=== PATIENT | female | born 1975 | race Caucasian/White ===

== ENCOUNTER 2017-08-22 11:43 | Inpatient (IN) ==
[2017-08-22] MEDS ORDERED: Sod Chloride 0.9% Inj 1,000 ML IV.SIG ONE (17:37)
--- NOTE | 2017-08-22 17:41 | P.HPIM ---
History of Present Illness Primary Care Physician: UNKNOWN Chief Complaint: Palpitations History of Present Illness: This patient is a 42-year-old female with minimal past medical history who comes in with intermittent palpitations for several weeks. She saw her primary care doctor who referred her to outpatient cardiology. In the meantime she had more symptoms and fact started having left arm pain and pressure. She was diaphoretic. She came to the emergency room. She denies geraldo chest pains that she has chest tightness and dyspnea during the symptoms. She notes that is not aggravated by movement and there is no associated fever or chills. She has never had this before. She is come to the emergency room in [place] been transferred to our facility for atypical chest discomfort. Cardiac troponins and EKG are unremarkable at this time - Diagnosis (1) Atypical chest pain (2) Heart palpitations Review of Systems All other systems reviewed negative except as stated in HPI Cardiovascular: Reports rapid, pounding, or irregular heartbeat PMFSH - History History Provided By: Patient - Medical History Medical History: Medical History (Last Reviewed 08/22/17 @ 17:40 by Magalys Abbasi MD) Patient denies medical problems - Surgical History Surgical History: Surgical History (Last Reviewed 08/22/17 @ 17:40 by Magalys Abbasi MD) History of bilateral tubal ligation No history of previous surgery - Family History Family History: Family History (Last Updated 08/22/17 @ 17:40 by Magalys Ababsi MD) Other CAD (coronary artery disease) - Tobacco History Second Hand Smoke Exposure: No Smoking Status: Never smoker - Alcohol History How Often Do You Have a Drink Containing Alcohol: Never - Substance Use History Substance History: No History of Abuse Medications and Allergies Active Medications: Active Medications Acetaminophen (Tylenol) 500 mg PO Q4H PRN PRN Reason: HEADACHE Aspirin (Aspirin) 325 mg PO DAILY CHAVEZ Famotidine (Pepcid) 20 mg PO BID CHAVEZ Nitroglycerin (Nitrostat Sl) 0.4 mg SL Q5M PRN PRN Reason: CHEST PAIN Sodium Chloride (Ns Flush) 2 ml IV.FLUSH BID CHAVEZ Sodium Chloride (Ns Flush) 2 ml IV.FLUSH PRN PRN PRN Reason: FLUSH AFTER USING IV ACCESS Allergies Allergy/AdvReac Type Severity Reaction Status Date / Time No Known Allergies Allergy Unverified 08/22/17 11:49 Home Medications Medication Instructions Recorded Confirmed Type No Known Home Medications 08/22/17 08/22/17 History Exam Vital signs: Intake & Output 08/21/17 08/22/17 08/22/17 18:59 06:59 18:59 Weight 77.9 kg Other: # Voids 1 Weight On Admission 77.9 kg Narrative: GENERAL: Patient calm resting and without complaints SKIN: Warm and dry. No rashes or ecchymotic injuries EYES: Pupils equal and round. No scleral icterus. No injection or drainage. ENT: External ear exam normal. No acute nasal bleeding or discharge. Mucous membranes pink and moist. CARDIOVASCULAR: Regular rate and rhythm. No murmurs gallops or rubs appreciated RESPIRATORY: Good air flow and effort without accessory muscle use. Clear to auscultation. Breath sounds equal bilaterally. GASTROINTESTINAL: Abdomen soft, non-tender, nondistended. Hepatic and splenic margins not palpable. MUSCULOSKELETAL: Extremities without clubbing, cyanosis, or edema. No obvious deformities. NEUROLOGICAL: Awake and alert. No obvious cranial nerve deficits. Motor grossly within normal limits. Five out of 5 muscle strength in the arms and legs. Normal speech. Results - Labs Labs: Labs reviewed from the ER show normal CBC and normal CMP was normal coagulation profile Caprini VTE Risk Assessment Caprini VTE Risk Assessment: No/Low Risk (score <= 1) Caprini Risk Assessment Model: Point Value = 1 Point Value = 2 Point Value = 3 Point Value = 5 Age 41-60 Minor surgery BMI > 25 kg/m2 Swollen legs Varicose veins or History of unexplained or recurrent spontaneous Oral contraceptives or hormone replacement Sepsis (< 1 month) Serious lung disease, including pneumonia (< 1 month) Abnormal pulmonary function Acute myocardial infarction Congestive heart failure (< 1 month) History of inflammatory bowel disease Medical patient at bed rest Age 61-74 Arthroscopic surgery Major open surgery (> 45 min) Laparoscopic surgery (> 45 min) Malignancy Confined to bed (> 72 hours) Immobilizing plaster cast Central venous access Age >= 75 History of VTE Family history of VTE Factor V Leiden Prothrombin [id number] Lupus anticoagulant Anticardiolipin antibodies Elevated serum homocysteine Heparin-induced thrombocytopenia Other congenital or acquired thrombophilia Stroke (< 1 month) Elective arthroplasty Hip, pelvis, or leg fracture Acute spinal cord injury (< 1 month) Prophylaxis Regimen: Total Risk Factor Score Risk Level Prophylaxis Regimen 0-1 Low Early ambulation 2 Moderate Order ONE of the following: *Sequential Compression Device (SCD) *Heparin 5000 units SQ BID 3-4 Higher Order ONE of the following medications: *Heparin 5000 units SQ TID *Enoxaparin/Lovenox 40 mg SQ daily (WT < 150 kg, CrCl > 30 mL/min) *Enoxaparin/Lovenox 30 mg SQ daily (WT < 150 kg, CrCl > 10-29 mL/min) *Enoxaparin/Lovenox 30 mg SQ BID (WT < 150 kg, CrCl > 30 mL/min) AND/OR *Sequential Compression Device (SCD) 5 or more Highest Order ONE of the following medications: *Heparin 5000 units SQ TID (Preferred with Epidurals) *Enoxaparin/Lovenox 40 mg SQ daily (WT < 150 kg, CrCl > 30 mL/min) *Enoxaparin/Lovenox 30 mg SQ daily (WT < 150 kg, CrCl > 10-29 mL/min) *Enoxaparin/Lovenox 30 mg SQ BID (WT < 150 kg, CrCl > 30 mL/min) AND *Sequential Compression Device (SCD) Assessment and Plan - Assessment (1) Atypical chest pain Code(s): R07.89 - Other chest pain Status: Acute Plan: Etiology unclear Patient has a sister with coronary disease but has minimal risk factors herself. Continue with telemetry plans, cardiac enzymes Patient may warrant a further stress testing (2) Heart palpitations Code(s): R00.2 - Palpitations Status: Acute Plan: Follow-up TSH Patient appears dehydrated on exam We will continue IV hydration and follow on telemetry H&P: Quality - VTE Deep Vein Thrombosis/Pulmonary Embolism Present on Admission: No
[2017-08-22] MEDS: Sod Chloride 0.9% Inj 1,000 ML IV.CONT SCH (18:01)
[2017-08-22 20:29] LABS: Creatine Kinase 78 U/L (26-192)
[2017-08-22 20:35] LABS: Thyroid Stimulating Hormone 0.997 uIU/mL (0.358-3.740)
[2017-08-22] MEDS: Famotidine 20 MG Tablet PO SCH (21:09)
[2017-08-22 22:53] LABS: Creatine Kinase 67 U/L (26-192)
[2017-08-23] MEDS: Sod Chloride 0.9% Inj 1,000 ML IV.CONT SCH ×2 (04:02→19:45)
[2017-08-23] MEDS: Famotidine 20 MG Tablet PO SCH ×2 (09:00→20:59)
[2017-08-23] MEDS: Aspirin 325 MG Tablet PO SCH (09:00)
--- NOTE | 2017-08-23 11:07 | P.PNIM ---
Subjective Interval history: Evaluated for atypical anginal equivalent presentation with palpitations. No events on telemetry Awaiting stress test Physical Exam Vital signs: Vital Signs 08/22/17 19:45 08/22/17 20:00 08/23/17 00:00 Temperature 97.3 F L 97.9 F Pulse Rate 65 66 Respiratory Rate 20 20 Blood Pressure 107/78 114/71 Pulse Oximetry 99 99 97 08/23/17 04:00 08/23/17 08:00 08/23/17 08:14 Temperature 97.2 F L 98.1 F Pulse Rate 72 71 Respiratory Rate 18 16 Blood Pressure 105/79 106/69 Pulse Oximetry 97 96 97 08/23/17 09:31 Temperature Pulse Rate 65 Respiratory Rate Blood Pressure Pulse Oximetry Intake & Output 08/22/17 08/23/17 08/23/17 18:59 06:59 18:59 Intake Total 2240 / 2240 Balance 2240 / 2240 Weight 77.9 kg 79.9 kg Intake: IV 2000 / 1999 NS Inj 1,000 ML @ 100 mls/hr IV 1000 / 1000 .CONT .Q10H CHAVEZ Rx#:[id number] NS Inj 1,000 ML @ Wide Open IV. 1000 / 1000 SIG BOLUS ONE Rx#:[id number] Oral 240 / 240 Other: # Voids 1 2 Weight On Admission 77.9 kg - Constitutional no acute distress - Routine Cardiovascular Exam Present: RRR, S1, S2 - Routine Extremities Exam Present: full ROM Results - Labs Laboratory Results - last 24 hr 08/22/17 08/22/17 08/22/17 19:40 19:40 22:25 Total Creatine Kinase 78 67 Troponin I Less than 0.02 L Less than 0.02 L TSH 0.997 Cancelled Assessment and Plan - Assessment (1) Atypical chest pain Code(s): R07.89 - Other chest pain Status: Acute Plan: Etiology unclear Patient has a sister with coronary disease but has minimal risk factors herself. Continue with telemetry plans, cardiac enzymes pending stress testing (2) Heart palpitations Code(s): R00.2 - Palpitations Status: Acute Plan: nl TSH Patient appears dehydrated on exam stable
[2017-08-23] MEDS ORDERED: Regadenoson Inj 0.4 MG/5 ML Syringe IV.PUSH ONE (13:09)
--- NOTE | 2017-08-23 14:30 | NM ---
EXAM DATE: 08/23/2017 2:15 PM EDT AGE/SEX: 42 years / Female INDICATIONS:Angina. . Left sided chest pain with palpitations. CLINICAL DATA: This is the patient's initial encounter. Patient reports that signs and symptoms have been present for 1 day and indicates a pain score of 3/10. MEDICAL/SURGICAL HISTORY: None. Hysterectomy. COMPARISON: No prior exams available for comparison. DOSE: 8.5 mCi Tc 99m Myoview at rest 25.4 mCi [id number] at stress 0.4 mg Lexiscan STRESS SYMPTOMS: Dyspnea and heart racing. EJECTION FRACTION: 56 % TECHNIQUE: The patient underwent pharmacologic stress with infusion of prescribed dose. Continuous ECG tracing was monitored during stress. Gated SPECT imaging was performed after stress and conventi onal SPECT imaging was performed at rest. The examination was performed on a SPECT/CT scanner, both attenuation and non-corrected datasets were reviewed. FINDINGS: Distribution: The maximum perfused segment at stress is in the anterior wall. Perfusion Study: There appears to be diminished perfusion involving the septal wall on the stress i mages. There appears to be redistribution along the septal wall on the rest images. This suggests isc hemic myocardial changes involving the septal wall. The rest of the ventricle demonstrates good perfu marilee. Gated Study: There are intact wall motion and wall thickening without hypokinetic or dyskinetic segm ents. The ejection fraction is calculated at 56%. RISK CATEGORY: Intermediate to high CONCLUSION: 1. There is diminished perfusion along the septal wall on the stress images. There is redistribution of tracer activity throughout the septal wall on the rest images suggestive of ischemic myocardial c hanges of the septal wall. 2. No other significant perfusion defects are demonstrated. Electronically signed by: Keaton Leavitt MD 08/23/2017 2:29 PM EDT
--- NOTE | 2017-08-23 15:04 | ECG ---
Date Performed: 08/22/2017 Time Performed: 17:03:59 PTAGE: 42 years EKG: SINUS BRADYCARDIA WITH SINUS ARRHYTHMIA POSSIBLE LEFT ATRIAL ENLARGEMENT BORDERLINE ECG NO PREVIOUS TRACING DOCTOR: Christopher Powell Interpretating Date/Time 08/23/2017 15:02:50
[2017-08-24 05:38] LABS: Chol/HDL Ratio 4.52 Ratio
[2017-08-24] MEDS: Aspirin 325 MG Tablet PO SCH (08:21)
[2017-08-24] MEDS: Famotidine 20 MG Tablet PO SCH ×2 (08:22→22:15)
[2017-08-24] MEDS: Sod Chloride 0.9% Inj 1,000 ML IV.CONT SCH ×2 (08:23→11:48)
--- NOTE | 2017-08-24 11:51 | P.PNIM ---
Subjective Interval history: Patient reports she is feeling okay today. Denies chest pressure or shortness of breath. Physical Exam Vital signs: Vital Signs 08/23/17 12:00 08/23/17 16:00 08/23/17 20:30 Temperature 98.0 F 98.7 F 98.1 F Pulse Rate 55 L 73 Respiratory Rate 16 17 60 H Blood Pressure 113/74 121/90 133/87 Pulse Oximetry 98 99 98 08/23/17 21:00 08/24/17 00:04 08/24/17 01:00 Temperature 98 F Pulse Rate 60 73 65 Respiratory Rate 20 Blood Pressure 107/56 L Pulse Oximetry 100 08/24/17 03:55 08/24/17 05:00 08/24/17 08:00 Temperature 98.2 F 98.1 F Pulse Rate 64 65 63 Respiratory Rate 18 16 Blood Pressure 108/65 114/74 Pulse Oximetry 97 100 08/24/17 09:00 08/24/17 10:00 08/24/17 11:00 Temperature Pulse Rate 59 L 57 L 55 L Respiratory Rate Blood Pressure Pulse Oximetry Intake & Output 08/23/17 08/24/17 08/24/17 18:59 06:59 18:59 Intake Total 1360 / 1360 240 / 240 Balance 1360 / 1360 240 / 240 Weight 78.5 kg Intake: IV 1000 / 1000 NS Inj 1,000 ML @ 100 mls/hr IV 1000 / 1000 .CONT .Q10H [facility] Rx#:[id number] Oral 360 / 360 240 / 240 Other: # Voids 5 2 # Bowel Movements 0 Narrative: GENERAL: This is a well-nourished, well-developed patient, in no apparent distress. CARDIOVASCULAR: Normal rate and regular rhythm without murmurs, gallops, or rubs. RESPIRATORY: Good respiratory efforts. Breath sounds equal and clear to auscultation bilaterally. GASTROINTESTINAL: Abdomen soft, non-tender, non-distended. Normal active bowel sounds MUSCULOSKELETAL: Extremities without cyanosis, or edema. NEURO: Alert & Oriented x4 to person, place, time, situation. Moves all ext x4 PSYCH: Appropriate mood and affect. Results - Labs Laboratory Results - last 24 hr 08/24/17 04:33 Triglycerides 80 Cholesterol 163 LDL Cholesterol, Calc 111 H HDL Cholesterol 36.0 L Cholesterol/HDL Ratio 4.52 - Imaging Impressions Myocardial Perfusion Scan Nuc Med 08/23/17 00:00 CONCLUSION: 1. There is diminished perfusion along the septal wall on the stress images. There is redistribution of tracer activity throughout the septal wall on the rest images suggestive of ischemic myocardial changes of the septal wall. 2. No other significant perfusion defects are demonstrated. Assessment and Plan - Assessment (1) Atypical chest pain Code(s): R07.89 - Other chest pain Status: Acute (2) Heart palpitations Code(s): R00.2 - Palpitations Status: Acute (3) Abnormal nuclear stress test Code(s): R94.39 - Abnormal result of other cardiovascular function study Status: Acute - Plan 42-year-old female who presented with chest pain. Patient had an abnormal nuclear stress test. Atypical chest pain/abnormal nuclear stress test: -Cardiology consulted. NPO for likely cath today - Continue Aspirin, nitro as needed. Chest pain resolved. GI prophylaxis: Stool softener PRN constipation. DVT PPx: Patient is ambulatory.
[2017-08-24] MEDS ORDERED: fentaNYL Citrate Inj 100 MCG/2 ML Ampul ONE (12:05)
[2017-08-24] MEDS ORDERED: Heparin/NS PF Inj 1,000 ML ONE (12:05)
--- NOTE | 2017-08-24 12:05 | TR ---
Date Performed: 08/23/2017 Time Performed: 13:16:18 DOCTOR: Xuan Martin DRUG LIST: CLINICAL HISTORY: CHEST PAIN REASON FOR TEST: Chest pain REASON FOR ENDING: OBSERVATION: CONCLUSION: Lexiscan stress test was performed under standard four minute protocol. Radionuclid e was injected one minute prior to ending the test. No electrocardiographic abormalities were present to suggest ischemia. Nuclear imaging and interpretation are pending. COMMENTS: no ischemia
[2017-08-24] MEDS ORDERED: Heparin 10,000 UNITS/10 ML Vial (for IV use) ONE (12:06)
--- NOTE | 2017-08-24 12:47 | CATHPROC ---
[facility] HIS Report Study Information Study Number Admission Scheduled Start Study Start [id number] Aug 23 2017 2:41PM 08/24/2017 Aug 24 2017 12:03PM [facility] [facility] Cardiac Catheterization Admit Source Facility Department Emergency department [facility] - [facility] Physician and Clinical Staff Initial Girma Hinkle Endband Cutter Hand Carole Benavides,Ag Cummings RN Recorder Umu Hardy,RT(R) Scrub Candi Joyner,KILN CAR UNLOADER TECH2 Procedures Performed Procedure Location (Site) Vessel Name Coronary Angiograms LCA Left Coronary Coronary Angiograms RCA Right Coronary L Heart Cath Equipment Time Police Commissioner Description Size Mfg Part Number Used/Scraped TRANSDUCER, TRUWAVE [id number] 12:06 FREGOSO FLORES * Used W/STOCKCOCK *[id number] [id number] *[id number] [id number] *[id number] 12:06 [employer] BLANKET,WARM AIR CCL * Used *[id number] 12:06 [employer] PACK, CCL CUSTOM * Used *[id number] 12:06 [employer] SUPPORT, ARTERIAL ADULT 74997 *[id number] Used BAND, RADIAL COMPRESSION TR [id number] 12:[address] 24CM Used SHORT 24 *[id number] 12:[address] WIRE, EXCHANGE 260CM 3MMJ 260CM Used *[id number] 12:06 NAMIC MANIFOLD, 4 PORT * Used *[id number] 12:06 [employer] OMNIPAQUE, 350 MG, 150ML 150ML [id number] Used SHEATH, FR6 TRANSRADIAL [id number] 12:06 [employer] FR 6 Used SLENDER 10CM *[id number] History: Current Medications Medication Dosage/Unit Route Frequency Last Date/Time Taken ASA LIPITOR History: Allergies Allergy Reaction No Known Allergies History: Risk Factors Family History of Hypertension Dyslipidemia Previous [place] Previous Heart Failure Premature CAD No No No No No Prior Valve Prior PCI Prior CABG Surgery No No No Cerebrovascular Peripheral Artery Chronic Lung On Dialysis Diabetes Disease Disease Disease No No No No No History: Stress Tests Stress or Imaging Studies Performed Yes Standard Exercise Stress Test No Stress Echo No Stress Test SPECT Stress Test SPECT Result Yes Positive Stress Test CMR No Cardiac CTA Coronary Calcium Score No No History: Other Current Smoker No Labs Hgb (g/dl) Hct (%) WBC (l/cumm) Platelets (thousands) 11.60-17.00 35.00-51.00 4.00-11.00 150.00-450.00 12.2 34.9 11.1 387 Glucose (mg/dl) BUN (mg/dl) Creatinine (mg/dl) BUN:Creatinine (1:x) 74.00-106.00 7.00-18.00 0.50-1.30 10.00-20.00 92 14 0.6 23.3 Na (meq/l) K (meq/l) 136.00-145.00 3.50-5.10 140 4 INR (PTT:PT) 0.90-1.10 1 Troponin I (ng/ml) CPK (u/l) CPK-MB (ng/ML) 0.02-0.05 26.00-308.00 0.50-3.60 0.02 67 Not Drawn Medication Medication Total Dose (Bolus/Oral) Medication Total Dosage/Unit 1% XYLOCAINE 5 mL FENTANYL 25 mcg RADIAL COCKTAIL 5 mL (Bolus) VERSED 0.5 mg Medications (Bolus/Oral) Medication Time Given Dosage/Unit Administered By Reason VERSED 08/24/2017 12:25:46 PM 0.5 mg Carole Benavides 0.5 mg VERSED given in lab by Carole Benavides RN in Left Antecubital via Peripheral IV. Ordered by Girma Gonzalez FENTANYL 08/24/2017 12:26:06 PM 25 mcg Carole Benavides 25 mcg FENTANYL given in lab by Carole Benavides RN in Left Antecubital via Peripheral IV. Ordered by Girma García 1% XYLOCAINE 08/24/2017 12:26:21 PM 5 mL Girma García 5 mL 1% XYLOCAINE given in lab by Girma García in Right Radial via Subcutaneous. Ntg 200mcg Verapamil 2.5mg Heparin RADIAL COCKTAIL 08/24/2017 12:28:05 PM 5 mL (Bolus) Girma García 3000U 5 mL (Bolus) RADIAL COCKTAIL given in lab by Girma García in Right Radial via Radial. Using [S olution Name]. Reason: Ntg 200mcg Verapamil 2.5mg Heparin 3000U. Medication (Drip) Medication Time Given Dosage/Unit Concentration/Unit Diluent (ml) Solution IV Solutions 08/24/2017 12:03:13 PM 50 mL (IV) NaCl .9 IV Solutions given in lab by Carole Benavides RN in Left Antecubital via Peripheral IV. Pump/Drip Javan w using NaCl .9. Initial Case Assessment Cardiovascular Chest Pain 0 Edema Present Skin color Skin None Normal Warm Dry Circulatory - Right Pulses Dorsalis Pedis Femoral Radial 2 2 2 Scale (0,1,2,3,4,d) Circulatory - Left Pulses Dorsalis Pedis Femoral Radial 2 2 Scale (0,1,2,3,4,d) Neurological State Oriented to time-place- Alert Moves all extremities person Chronological Log Time Study Chronological Log 11:59:00 Patient arrived via Bed. 12:02:58 Patient Name, D.O.B, / Armband Verified By R.N. 12:02:59 Consent signed by the physician and the patient and verified by the [employer] staff. 12:03:00 Pre-op and post- op instructions given; patient acknowledges understanding of instructions . 12:03:01 Verbal Stimulation=2 Physical Stimulation=2 Airway=2 Respiration=2 TOTAL=8. (0=absent, 1=l imited, 2=present) 12:03:03 Allens test performed on the right radial and ulnar artery. 12:03:05 Patient has been NPO for More than 6Hrs. 12:03:05 Skin Breakdown- none per pt 12:03:06 Patient Warmer Placed on the Table. 12:03:07 [place] Prominences Protected 12:03:08 A # 22 IV was noted in the Antecubital (left). Grade = 0 12:03:13 IV Solutions given in lab by Carole Benavides, GHANSHYAM in Left Antecubital via Peripheral IV. Pu mp/Drip Flow using NaCl .9. 12:03:32 History and physical on the chart or being dictated. Assessment: Initial Case, Chest Pain=0, Edema=None, Color=Normal, Skin = Warm, Dry Right Pulses: Raymon Ped=2, Femoral=2, Radial=2 12:03:32 Left Pulses: Raymon Ped=2, Femoral=2 Neurological: State=Alert, Ox3, HOUSER Vitals capture started with the following parameters, Patient=Adult, Interval=5 min, Initial P ngynaxs=087 mmHg, 12:03:35 Deflation Rate=5 mmHg, Cuff placed on Right Arm 12:04:15 HR=65 bpm, RFGD=639/65 mmhg, EyO3=351.0 %, Resp=9 B/min, Pain=0, Jorje=10, Reyes=2 12:05:58 Reference ECG taken 12:09:10 HR=60 bpm, CQMV=608/84 mmhg, SxN7=832.0 %, Pain=0, Jorje=10, Reyes=2 12:11:15 MD paged 12:12:09 Right Radial and groin(s) prepped with 2% chlorhexidine, and draped after a 3 min. waiting time. 12:13:47 Pressure channel 1 zeroed. 12:14:07 HR=70 bpm, UZSG=303/90 mmhg, FjF2=858 %, Resp=12 B/min, Pain=0, Jorje=10, Reyes=2 12:19:12 HR=59 bpm, IGRL=997/74 mmhg, SpO2=99.0 %, Pain=0, Jorej=10, Reyes=2 12:21:32 MD arrived. 12:24:09 HR=60 bpm, BZOB=879/78 mmhg, IgF3=380.0 %, Resp=12 B/min, Pain=0, Jorje=10, Reyes=2 Time Out. Correct patient, correct procedure, correct physician, labs, allergies, and equipment verified with slabber 12:25:21 team present. Fire risk assesment completed (see hard stop sheet for coding). Time Out Conc urred by MD and individual staff in procedure. 0.5 mg VERSED given in lab by Carole Benavides, GHANSHYAM in Left Antecubital via Peripheral IV. Ordere d by Girma García 12:25:46 G. 25 mcg FENTANYL given in lab by Carole Benavides, GHANSHYAM in Left Antecubital via Peripheral IV. Orde red by Ricky 12:26:06 Girma Talbot 12:26:16 Case Start 12::21 5 mL 1% XYLOCAINE given in lab by Girma García in Right Radial via Subcutaneous. 12:27:09 Access site was Right Radial Artery. A SHEATH, FR6 TRANSRADIAL SLENDER 10CM FR 6 was advanced into the Radial (right) using the Perc utaneous 12:27:52 technique. 5 mL (Bolus) RADIAL COCKTAIL given in lab by Girma García in Right Radial via Radial. Us ing [Solution Name]. 12:28:05 Reason: Ntg 200mcg Verapamil 2.5mg Heparin 3000U. A JR 4.0 INFINITI CATHETER FR 5 was advanced over a wire. OMNIPAQUE, 350 MG, 150ML 150ML was us ed for 12::34 injections. 12:29:10 HR=72 bpm, MVZJ=452/82 mmhg, SpO2=97 %, Resp=10 B/min, Pain=0, Jorje=10, Reyes=2 Recorded Pressure: LV, GM=693, Condition=Condition 1 12:29:39 (Left Ventricle) LV 132/4/17 Recorded Pressure: LV, Ao, HR=74, Condition=Condition 1 12:30:01 (Left Ventricle) LV 129/-3/14, (Aorta) Ao 107/71/87 Recorded Pressure: Ao, HR=73, Condition=Condition 1 12:30:27 (Aorta) Ao 103/72/88 12:30:50 The RCA was injected and visualized at various angles. OMNIPAQUE, 350 MG, 150ML 150ML used . After removing the current catheter a JL 3.5 INFINITI CATHETER FR 5 was advanced over a WIRE, E XCHANGE 260CM 12:32:06 3MMJ 260CM. 12:34:14 HR=72 bpm, LIPH=806/71 mmhg, SpO2=94 %, Resp=13 B/min, Pain=0, Jorje=10, Reyes=2 12:34:30 The LCA was injected and visualized at various angles. OMNIPAQUE, 350 MG, 150ML 150ML used . 12:35:32 Catheter was removed 12:36:10 Case End (Physician broke scrub) Radial Compression Device Used. ~VOLUME ML~ mLs of air placed in BAND, RADIAL COMPRESSION TR ORT 24 12:36:14 24CM. Affected hand ~O2 SATURATION~ % O2 saturation. 12:36:44 No case complications noted. 12:36:46 Cine recording checked. 12:36:53 Report called to floor. 12:36:53 Bedside Report will be given. 12:36:57 A Left Heart Cath was performed. 12:39:09 HR=71 bpm, VWQT=701/71 mmhg, SpO2=94 %, Resp=17 B/min, Pain=0, Jorje=10, Reyes=2 12:42:00 Patient moved to stretcher End Study - Contrast Media Used In Study Contrast Total Opened (mL) Total Used (mL) Total Wasted (mL) Omnipaque 25 25 0 End Study - Maximum Contrast Load Max Contrast Load (mL) 654.2 End Study - Radiation Exposure Fluoro Time (minutes) 2.2 End Study - Patient Disposition Complications Transferred To Interventional Outcome No Telemetry Bed No attempt made
--- NOTE | 2017-08-24 14:58 | ECHRPT ---
Indication: CHEST PAIN CONCLUSIONS The left ventricular systolic function is normal with an estimated ejection fraction in the range of 60-65%. Normal left ventricular size. Wall thickness is normal. No regional wall motion abnormalities are present. Trace aortic valve regurgitation. There is mild tricuspid valve regurgitation. The estimated pulmonary arterial pressure is 32.3 mmHg. Trivial pulmonary valve regurgitation. BP: / HR: Rhythm: Sinus MEASUREMENTS (Male / Female) Normal Values Technical Quality:Good 2D ECHO LV Diastolic Diameter PLAX 3.9 cm 4.2 - 5.9 / 3.9 - 5.3 cm LV Systolic Diameter PLAX 2.8 cm IVS Diastolic Thickness 1.0 cm 0.6 - 1.0 / 0.6 - 0.9 cm LVPW Diastolic Thickness 1.0 cm 0.6 - 1.0 / 0.6 - 0.9 cm LV Relative Wall Thickness 0.5 RV Internal Dim ED PLAX 2.6 cm LVOT Diameter 1.5 cm LA Systolic Diameter LX 3.2 cm 3.0 - 4.0 / 2.7 - 3.8 cm LV Ejection Fraction MOD 4C 68.8 % LV Ejection Fraction 4C AL 69.3 % M-MODE Aortic Root Diameter MM 1.8 cm LA Systolic Diameter MM 3.0 cm LA Ao Ratio MM 1.7 AV Cusp Separation MM 1.6 cm DOPPLER AV Peak Velocity 162.0 cm/s AV Peak Gradient 10.5 mmHg AI Peak Velocity 331.0 cm/s AI Peak Gradient 43.8 mmHg AI Pressure Half Time 732.0 ms LVOT Peak Velocity 133.0 cm/s LVOT Peak Gradient 7.1 mmHg AV Area Cont Eq pk 1.5 cm MV Area PHT 2.5 cm Mitral E Point Velocity 80.5 cm/s Mitral A Point Velocity 80.0 cm/s Mitral E to A Ratio 1.0 LV E' Lateral Velocity 11.8 cm/s Mitral E to LV E' Lateral Ratio 6.8 LV E' Septal Velocity 7.8 cm/s Mitral E to LV E' Septal Ratio 10.3 TR Peak Velocity 236.0 cm/s TR Peak Gradient 22.3 mmHg Right Atrial Pressure 10.0 mmHg Pulmonary Artery Systolic Pressu 32.3 mmHg Right Ventricular Systolic Press 32.3 mmHg PV Peak Velocity 97.7 cm/s PV Peak Gradient 3.8 mmHg FINDINGS LEFT VENTRICLE The left ventricular systolic function is normal with an estimated ejection fraction in the range of 60-65%. Normal left ventricular size. Wall thickness is normal. No regional wall motion abnormalities are present. RIGHT VENTRICLE Normal right ventricular size and systolic function. LEFT ATRIUM The left atrial size is normal. RIGHT ATRIUM The right atrial size is normal. ATRIAL SEPTUM Normal atrial septal thickness without atrial level shunting by limited color doppler interrogation. AORTA The aortic root and proximal ascending aorta are normal in size on limited imaging. MITRAL VALVE Structurally normal mitral valve. No mitral valve stenosis or regurgitation. AORTIC VALVE Trileaflet aortic valve. Trace aortic valve regurgitation. TRICUSPID VALVE Structurally normal tricuspid valve. There is mild tricuspid valve regurgitation. The estimated pulmonary arterial pressure is 32.3 mmHg. PULMONARY VALVE Trivial pulmonary valve regurgitation. VESSELS The inferior vena cava is normal in size. PERICARDIUM No pericardial effusion. Nile Pappas MD, FACC, [facility] [place] (Electronically Signed) Final Date:24 August 2017 14:57
[2017-08-24] MEDS: Acetaminophen 500 MG Tablet PO PRN ×2 (15:19→22:15)
[2017-08-24] MEDS ORDERED: Iohexol 350 MG/ML 50 ML Vial (for Cath Lab) IVCONTRAST ONE (17:22)
--- NOTE | 2017-08-24 18:32 | ECG ---
Date Performed: 08/22/2017 Time Performed: 22:00:48 PTAGE: 42 years EKG: Sinus rhythm NORMAL ECG DOCTOR: Blayne Montoya Interpretating Date/Time 08/24/2017 18:30:35
--- NOTE | 2017-08-24 21:45 | MB ---
cc: Girma García Vincent G DO DATE: 08/24/2017 REASON FOR CONSULTATION: Chest pain, abnormal stress test. HISTORY OF PRESENT ILLNESS: Jacob Garcia is a pleasant 42-year-old female who presented to [facility] Emergency Room due to intermittent palpitations for the past several weeks. She has been seeing her primary care doctor who referred her to outpatient cardiology, but before she could make it to see the vegetable cook she was noted to continue to have palpitations which worried her. Then, she started having left arm pain and a tightness in the left side of the chest. Because of this, she came to the emergency room. She was ruled out for a myocardial infarction and so she underwent stress testing. Stress testing was noted to show possible septal ischemia. Because of this, she was recommended consideration of cardiac catheterization. PAST MEDICAL HISTORY: Denies. PAST SURGICAL HISTORY: Bilateral tubal ligation. ALLERGIES: NO KNOWN DRUG ALLERGIES. MEDICATIONS: Denies. FAMILY HISTORY: Multiple family members have had coronary artery disease. Cardiac within the family. SOCIAL HISTORY: Denies tobacco, alcohol or drug abuse. REVIEW OF SYSTEMS: Fourteen systems were reviewed including osteopathic. Pertinent positives and negatives as above, otherwise negative. PHYSICAL EXAMINATION: VITAL SIGNS: Temperature 98.4, heart rate 63, blood pressure 114/74, respirations 16, pulse oximetry 100% on room air. GENERAL: The patient appears well in no acute distress, alert, awake and oriented x3. HEENT: Extraocular muscles intact. Mucous membranes moist. NECK: Supple. No JVD at 45 degrees. No carotid bruits heard bilaterally. Carotid upstroke is brisk in nature. HEART: Regular rate and rhythm. Positive first and second heart sounds with no noted murmurs, gallops or rubs. LUNGS: Clear to auscultation bilaterally. No wheezes, rales or rhonchi. ABDOMEN: Soft, nontender, nondistended. No organomegaly noted. EXTREMITIES: Show no clubbing, cyanosis or edema. Femoral and distal pulses intact bilaterally. NEUROLOGIC: No focal deficits. SKIN: Warm, dry and intact. OSTEOPATHIC: No kyphoscoliosis, lordosis or paraspinal tender points. LABORATORY DATA: Hemoglobin 12.2, hematocrit 34.9, platelets 387. Potassium 4.0, BUN 14, creatinine 0.6. Troponin negative x3. Triglycerides 80, total cholesterol 163, LDL 111, HDL 36. TSH 0.997. CARDIOLOGY STUDIES: Electrocardiogram (08/22/2017 at 1703): Sinus bradycardia with sinus arrhythmia, possible left atrial enlargement. IMPRESSION: 1. Palpitations of unknown cause. 2. Chest pain with atypical for coronary insufficiency. 3. Abnormal stress test showing septal ischemia (intermediate to high risk). 4. Obesity with a body mass index of 35. RECOMMENDATIONS: 1. Ms. Garcia presented originally with palpitations and this can be worked up as an outpatient. On telemetry here no arrhythmias have been noted. 2. She did undergo stress testing for atypical chest pain and this was showing septal ischemia and considered intermediate to high risk. My review of the images shows gut activity making the inferior wall difficult to determine if there is ischemia. I do see the area of concern within the septum. As this is considered an intermediate to high risk stress test, per radiology, as well as concern for areas of possible ischemia she will be recommended cardiac catheterization. 3. Risks, benefits, and alternatives have been explained to her and she consents as such. 4. We will also check a 2-Dimensional echocardiogram to look at her overall left ventricular function, cardiac structure and possible valvulopathies. 5. She can followup with cardiology outpatient for further considerations of a rhythm analysis due to her palpitations. 6. Further recommendations will be made after coronary visualization. Thank you for allowing me to see Jacob Garcia. If there are any questions, please do not hesitate to call. DO LAZARA Delarosa/ , 09:13 PM , 09:43 PM
--- NOTE | 2017-08-24 21:55 | MA ---
cc: Girma García Vincent G DO DATE: 08/24/2017 PROCEDURE: Left heart catheterization, coronary angiogram, moderate sedation 10 minutes. PREPROCEDURE DIAGNOSIS: Atypical chest pain, abnormal stress test (intermediate to high risk). POSTPROCEDURE DIAGNOSES: Minimal coronary artery disease. MEDICATIONS: Versed 0.5 mg, fentanyl 25 mcg, verapamil 2.5 mg, nitro 200 mcg, heparin 3000 units. CONTRAST USED: 25 mL FLUOROSCOPY: 2.2 minutes. MODERATE SEDATION: 10 minutes. FRAILTY SCORE: 2. ESTIMATED BLOOD LOSS: 10 mL PROCEDURAL SUMMARY: Jacob Garcia is a pleasant 42-year-old female who originally presented to [facility] emergency room due to palpitations and chest pain. She was transferred to [facility] and underwent stress testing which showed septal ischemia and was considered intermediate to high risk. Because of this, she was recommended cardiac catheterization. Risks, benefits and alternatives were explained to her and she consented as such. She was brought to the lab and prepped in the usual sterile fashion. The right radial artery was accessed using a modified Seldinger technique and placement of a 5/6 British slender sheath. This was easily aspirated and flushed. A JR4 was advanced over a J-wire to the ascending aorta and across the aortic valve for measurement of left ventricular pressure. There was pull back across the aortic valve showing no significant gradient or aortic stenosis. JR4 was used for selective angiography of the right coronary artery system. This was exchanged out for a JL3.5, which was used for selective angiography of the left coronary artery system. JL3.5 was removed over a J wire. A radial band was placed over the arteriotomy site for hemostasis. The patient left the mobile lab technician cardiovascularly stable. FINDINGS: LEFT MAIN: Normal-sized vessel with adequate reflux. It bifurcates into an LAD and circumflex. LAD: Normal-sized vessel with mild luminal irregularities and some tortuosity through the mid to distal portion. It gives off 2 small diagonals with no significant disease. LEFT CIRCUMFLEX: Moderate size vessel with mild luminal irregularities. It gives off 1 major obtuse marginal with no significant disease. RCA: Normal-sized vessel with no significant disease noted. It gives off a PDA as well as multiple small posterolateral branches. LVEDP 14. IMPRESSION: 1. Atypical chest pain. 2. Minimal coronary artery disease by cardiac catheterization. RECOMMENDATIONS: 1. Ms. Garcia underwent cardiac catheterization that showed minimal coronary artery disease at most. 2. We will plan on checking a 2-Dimensional echocardiogram and, if no problem is noted, she may be discharged home for follow up outpatient with her primary care physician or Cardiology for further workup of her palpitations with consideration of rhythm analysis. Thank you for allowing me to see Jacob Garcia. If there are any questions, please do not hesitate to call. DO LAZARA Delarosa/ , 09:19 PM , 09:53 PM
[2017-08-25] MEDS: Acetaminophen 500 MG Tablet PO PRN (03:58)
[2017-08-25] MEDS: Famotidine 20 MG Tablet PO SCH (08:09)
[2017-08-25] MEDS: Aspirin 325 MG Tablet PO SCH (08:09)
[2017-08-25] MEDS: Sod Chloride 0.9% Inj 1,000 ML IV.CONT SCH (08:11)
--- NOTE | 2017-08-25 19:23 | P.PNCA ---
Subjective Interval history: Doing well, no complaints Physical Exam Vital signs: Vital Signs 08/24/17 20:00 08/24/17 21:00 08/24/17 22:00 Temperature Pulse Rate 62 66 60 Respiratory Rate Blood Pressure Pulse Oximetry 08/24/17 23:00 08/25/17 00:00 08/25/17 01:00 Temperature 98.0 F Pulse Rate 64 68 64 Respiratory Rate 20 Blood Pressure 108/72 Pulse Oximetry 98 08/25/17 02:00 08/25/17 03:00 08/25/17 04:00 Temperature 98.0 F Pulse Rate 64 66 74 Respiratory Rate 20 Blood Pressure 118/65 Pulse Oximetry 96 08/25/17 05:00 08/25/17 06:00 08/25/17 07:00 Temperature 98.4 F Pulse Rate 54 L 66 60 Respiratory Rate 16 Blood Pressure 109/75 Pulse Oximetry 96 08/25/17 08:00 Temperature Pulse Rate 60 Respiratory Rate Blood Pressure Pulse Oximetry Intake & Output 08/25/17 08/25/17 08/26/17 06:59 18:59 06:59 Intake Total 600 / 600 Balance 600 / 600 Weight 77.5 kg Intake: Oral 600 / 600 Other: # Voids 1 Narrative: GENERAL: This is a well-nourished, well-developed patient, in no apparent distress. CARDIOVASCULAR: Normal rate and regular rhythm without murmurs, gallops, or rubs. RESPIRATORY: Good respiratory efforts. Breath sounds equal and clear to auscultation bilaterally. GASTROINTESTINAL: Abdomen soft, non-tender, non-distended. Normal active bowel sounds MUSCULOSKELETAL: Extremities without cyanosis, or edema. Right radial no hematoma, neurovascularly intact distally NEURO: Alert & Oriented x4 to person, place, time, situation. Moves all ext x4 PSYCH: Appropriate mood and affect. Assessment and Plan - Assessment (1) Abnormal nuclear stress test Code(s): R94.39 - Abnormal result of other cardiovascular function study Status: Acute (2) Atypical chest pain Code(s): R07.89 - Other chest pain Status: Acute (3) Heart palpitations Code(s): R00.2 - Palpitations Status: Acute - Plan 1) Atypical chest pain/abnormal stress test Cath showing no significant disease 2) Normal EF by echo with mild MR 3) Palpitations No arrhythmias noted on telemetry Follow up outpatient with PCP/Cardiology for consideration of rhythm analysis 4) Cardiovascularly stable for discharge
== END 2017-08-25 10:05 | disposition home or self-care (01) ==
LOC: PH3 11:43 → PHEDDLT 11:43 → HCPC 08-23 19:16
PROVIDERS: ADMIT Family Medicine; ATTEND Family Medicine